=== PATIENT | male | born 1980 | race Caucasian/White ===

== ENCOUNTER 2020-01-01 22:11 | Emergency (ER) | payer OTHER ==
[2020-01-01 22:51] VITALS: BMI 35.5
[2020-01-01] MEDS ORDERED: SODIUM CHLORIDE 0.9% 500 ML INFUS.BAG IV ONE (22:56)
[2020-01-01] MEDS ORDERED: ACETAMINOPHEN 1000 MG/100 ML VIAL (NON FORMULARY) IVPB ONE (22:56)
--- NOTE | 2020-01-01 22:57 | PDOC ---
History of Present Illness - General Chief Complaint: Chest Pain Stated Complaint: CHEST AND ABDOMINAL PAIN Time Seen by Provider: 01/01/20 22:41 - History of Present Illness Initial Comments: Maximo Odom is a 39 y/o male with PMH significant for asthma presenting today with abdominal pain. Reports diffuse abdominal pain worse in the LLQ and associated with chest tightness. Pt had normal bowel movements today. Vomited x4 this evening NBNB. Reports possible minimal blood when wiping but none in the stool. Pain is constant and sharp. No fever/chills. No shortness of breath. SurgHx: none Past History - Medical History Allergies/Adverse Reactions: Allergies Allergy/AdvReac Type Severity Reaction Status Date / Time Fish Containing Products Allergy Severe Swelling Verified 01/01/20 23:24 seafood Allergy Severe Swelling Uncoded 04/19/16 10:33 Home Medications: Ambulatory Orders Alprazolam [Xanax] 2 mg PO TID 04/19/16 Escitalopram Oxalate [Lexapro -] 20 mg PO DAILY 04/19/16 Ondansetron [Zofran *Odt*] 4 mg SL PRN PRN #14 od.tablet 04/19/16 Famotidine [Pepcid] 20 mg PO BID PRN 14 Days #28 tablet 01/02/20 Ondansetron [Zofran *Odt*] 4 mg SL DAILY PRN #14 od.tablet 01/02/20 Anemia: No Asthma: Yes Cancer: No Cardiac Disorders: No CVA: No COPD: No CHF: No Dementia: No Diabetes: No GI Disorders: No Disorders: No HTN: No Hypercholesterolemia: No Kidney Stones: No Liver Disease: No Psychiatric Problems: Yes (anxiety) Seizures: No Thyroid Disease: No - Reproductive History Testicular Surgery: No - Immunization History Td Vaccination: Yes TDAP Vaccination: Yes Immunization Up to Date: Yes - Psycho-Social/Smoking History Smoking Status: No Smoking History: Never smoked Have you smoked in the past 12 months: No Number of Cigarettes Smoked Daily: 0 Cigars Per Day: 0 'Breaking Loose' booklet given: 04/25/14 - Substance Abuse Hx (Audit-C & DAST Scrn) How often the patient has a drink containing alcohol: Monthly or less Score: In Men: 4 or > Positive; In Women: 3 or > Positive: 1 Screen Result (Pos requires Nsg. Audit-10AR): Negative Review of Systems - Review of Systems Comments:: GENERAL/CONSTITUTIONAL: No fever or chills. No weakness._ HEAD, EYES, EARS, NOSE AND THROAT: No change in vision. No change in hearing. No sore throat._ CARDIOVASCULAR: No chest pain or shortness of breath_ RESPIRATORY: Denies cough, hemoptysis_ GASTROINTESTINAL: Reports abdominal pain. Reports nausea and vomiting. No diarrhea or constipation._ GENITOURINARY: No dysuria, frequency, or change in urination._ MUSCULOSKELETAL: No joint or muscle swelling or pain. No neck or back pain._ SKIN: No rash_ NEUROLOGIC: No headache, vertigo, loss of consciousness, or change in strength/sensation._ ENDOCRINE: No increased thirst. No abnormal weight change_ HEMATOLOGIC/LYMPHATIC: No anemia, easy bleeding, or history of blood clots._ ALLERGIC/IMMUNOLOGIC: No hives or skin allergy._ *Physical Exam - Vital Signs Last Vital Signs Temp Pulse Resp BP Pulse Ox 98.1 F 76 20 122/73 96 01/01/20 22:20 01/01/20 22:20 01/01/20 22:20 01/01/20 22:20 01/01/20 22:20 - Physical Exam GENERAL: Awake, alert, and oriented to person/place/time, in no acute distress_ HEAD: No signs of trauma, normocephalic, atraumatic _ EYES: PERRLA, EOMI, sclera anicteric, conjunctiva clear_ ENT: Hearing grossly normal, nares patent, oropharynx clear without exudates. No uvular deviation. Moist mucosa_ NECK: Normal ROM, supple, no lymphadenopathy, JVD, or masses_ LUNGS: No distress, speaks in full sentences, clear to auscultation bilaterally _ HEART: Regular rate and rhythm, normal S1 and S2, no murmurs appreciated, p eripheral pulses normal and equal bilaterally._ ABDOMEN: Soft, obese, mild TTP worse in the LLQ, normoactive bowel sounds. No guarding, no rebound. No masses_ EXTREMITIES: Normal inspection, Normal range of motion, no edema. No clubbing or cyanosis_ NEUROLOGICAL: Cranial nerves II through XII grossly intact. Normal speech, normal gait, no focal sensorimotor deficits _ SKIN: Warm, Dry, normal turgor, no rashes or lesions noted_ RECTAL: Normal inspection, no obvious bleeding, no masses, normal rectal tone, no hemorrhoids appreciated. ED Treatment Course - LABORATORY CBC & Chemistry Diagram: 01/01/20 23:25 01/01/20 23:25 - RADIOLOGY Radiology Studies Ordered: Category Date Time Status CHEST X-RAY PORTABLE* [RAD] Stat Radiology 01/01/20 22:55 Ordered Medical Decision Making - Medical Decision Making 39M hx of asthma presenting with diffuse abd pain worse in the LLQ and vomiting x4 this evening. First time abd pain. -cbc, cmp -ekg, trop, cxr -lipase -CT abd/pelv -FOBT -GI cocktail 01/02/20 00:50 POCUS GB shows no obvious signs of cholecystitis or cholelithiasis. Labs reviewed. Laboratory Last Values WBC 7.5 K/mm3 (4.0-10.0) 01/01/20 23:25 RBC 4.97 M/mm3 (4.00-5.60) 01/01/20 23: Hgb 14.3 GM/dL (11.7-16.9) 01/01/20 23:25 Hct 42.5 % (35.4-49) 01/01/20 23:25 MCV 85.5 fl (80-96) 01/01/20 23:25 MCH 28.8 pg (25.7-33.7) 01/01/20 23: MCHC 33.7 g/dl (32.0-35.9) 01/01/20 23:25 RDW 14.4 % (11.9-15.9) 01/01/20 23: Plt Count 190 K/MM3 (134-434) D 01/01/20 23:25 MPV 9.5 fl (7.5-11.1) 01/01/20 23:25 Absolute Neuts (auto) 5.1 K/mm3 (1.5-8.0) 01/01/20 23:25 Neutrophils % 67.8 % (42.8-82.8) D 01/01/20 23:25 Lymphocytes % 22.7 % (8-40) D 01/01/20 23: Monocytes % 7.0 % (3.8-10.2) 01/01/20 23: Eosinophils % 1.9 % (0-4.5) 01/01/20 23:25 Basophils % 0.6 % (0-2.0) 01/01/20 23:25 Nucleated RBC % 0 % (0-0) 01/01/20 23:25 Sodium 138 mmol/L (136-145) 01/01/20 23:25 Potassium 5.0 mmol/L (3.5-5.1) 01/01/20 23:25 Chloride 104 mmol/L (98-107) 01/01/20 23:25 Carbon Dioxide 29 mmol/L (21-32) 01/01/20 23:25 Anion Gap 4 MMOL/L (8-16) L 01/01/20 23:25 BUN 12.8 mg/dL (7-18) 01/01/20 23:25 Creatinine 1.1 mg/dL (0.55-1.3) 01/01/20 23:25 Est GFR (CKD-EPI)AfAm 96.13 01/01/20 23:25 Est GFR (CKD-EPI)NonAf 82.94 01/01/20 23:25 Random Glucose 99 mg/dL (74-106) 01/01/20 23:25 Calcium 9.6 mg/dL (8.5-10.1) 01/01/20 23:25 Total Bilirubin 0.3 mg/dL (0.2-1) 01/01/20 23:25 AST 34 U/L (15-37) 01/01/20 23:25 ALT 62 U/L (13-61) H 01/01/20 23:25 Alkaline Phosphatase 49 U/L (45-117) 01/01/20 23:25 Creatine Kinase 199 U/L (26-308) 01/01/20 23:25 Creatine Kinase Index 0.6 % (0.0-5.0) 01/01/20 23:25 CK-MB (CK-2) 1.2 ng/mL (0.5-3.6) 01/01/20 23:25 Troponin I < 0.02 ng/ml (0.00-0.05) 01/01/20 23:25 Total Protein 8.2 g/dl (6.4-8.2) 01/01/20 23:25 Albumin 4.4 g/dl (3.4-5.0) 01/01/20 23:25 Lipase 167 U/L (73-393) 01/01/20 23:25 01/02/20 01:14 CXR shows no acute chest pathology. EKG shows 71 bpm, NSR, incomplete RBBB (slightly more evident compared to p rior Mar 2016), LAFB, no ST elevation, QTc 408. 01/02/20 05:48 CT abd/pelv negative for acute intra-abdominal pathology. Pt reassessed. Reports moderate improvement with GI cocktail, but burning type sensation in the LUQ has returned. Plan to d/c home with PCP f/u and pepcid for gastritis. All questions answered. Return precautions given. Pt verbalized understanding and agreement with plan. Discharge - Discharge Information Problems reviewed: Yes Clinical Impression/Diagnosis: Abdominal pain, Nausea & vomiting Condition: Stable Disposition: HOME - Admission No - Additional Discharge Information Prescriptions: Famotidine [Pepcid] 20 mg PO BID PRN 14 Days #28 tablet PRN Reason: Indigestion Ondansetron [Zofran *Odt*] 4 mg SL DAILY PRN #14 od.tablet PRN Reason: Nausea And/Or Vomiting - Follow up/Referral Referrals: Ron Holguin MD [Primary Care Provider] - - Patient Discharge Instructions Patient Printed Discharge Instructions: Acute Abdominal Pain, DI for Gastritis Additional Instructions: Please keep yourself well hydrated and well nourished. Please take pepcid twice a day for 2 weeks for your abdominal pain. Please take zofran 4 mg as needed for your nausea. Please make a follow up appointment with your primary care doctor and with a unloading checker (Dr. Green). If you experience any new, worsening, or concerning symptoms, including severe abdominal pain, blood in the vomit, dizziness, chest pain, shortness of breath, or any other concerns, please return to the emergency room. - Post Discharge Activity Work/Back to School Note: Back to Work
[2020-01-01] MEDS ORDERED: MAG HYDROX/AL HYDROX/SIMETH -MYLANTA- ORAL SUSPENSION PO ONE (23:28)
[2020-01-01] MEDS ORDERED: LIDOCAINE VISCOUS 2% ORAL/TOP 20 ML UNIT-DOSE CUP MM ONE (23:28)
[2020-01-01] MEDS ORDERED: FAMOTIDINE 20 MG/50 ML IVPB 20 MG/50 ML MG IVPB ONE (23:28)
--- NOTE | 2020-01-01 23:28 | PDOC ---
Documentation entered by Hailee Bennett SCRIBE, acting as scribe for Cara Rios MD. Cara Rios MD: This documentation has been prepared by the Venecia villanueva Nirvannie, SCRIBE, under my direction and personally reviewed by me in its entirety. I confirm that the documentation accurately reflects all work, treatment, procedures, and medical decision making performed by me. Attending Attestation - Resident Resident Name: PressleyRandy - ED Attending Attestation I have performed the following: I have examined & evaluated the patient, The case was reviewed & discussed with the resident, I agree w/resident's findings & plan, Exceptions are as noted - HPI HPI: 01/01/20 23:47 The patient is a 39 year old male with a significant past medical history of asthma and anxiety who presents to the ED with LLQ abdominal with radiation up the abdomen with associated chest tightness. As per patient, he had a normal BM today. He denies any history of abdominal surgeries. He denies any fevers, chill s, no sob. did have vomiting x 4. thouht maybe had had blood in his stool, but was unclear if he had eating anything red. no sick contacts. no mod factors. pain constant, radiation upward. no mod factors. did not take anything for pain. Allergies: Fish containing products, seafood Primary Care Physician: Dr. Holguin - Physicial Exam PE: 01/02/20 00:09 awake alert lungs clear bilat heart rrr no mrg abd soft llq ttp. and diffusely tender. no rebound no guarding. no cva tenderness. skin warm and dry. alert oriented x 3. ext wwp. no edema. symmetric pulses. - Medical Decision Making 01/02/20 00:10 39 yo male h/o asthma with lower abd pain radiating upward into chest, associated vomiting x 4. differential diverticulitis, colitis, cholecystitis, pancreatitis. malloryweis or boorehaves as has chest tightness. plan labs ekg ua ct a/p . cxr Heart Score/ECG Review #1 ECG reviewed & interpreted by me at: 23:28 General ECG Interpretation: Sinus Rhythm, Normal Rate, Normal Intervals, No acute ischemic changes Discharge - Discharge Information Problems reviewed: Yes Clinical Impression/Diagnosis: Abdominal pain, Nausea & vomiting Condition: Stable Disposition: HOME - Additional Discharge Information Prescriptions: Famotidine [Pepcid] 20 mg PO BID PRN 14 Days #28 tablet PRN Reason: Indigestion Ondansetron [Zofran *Odt*] 4 mg SL DAILY PRN #14 od.tablet PRN Reason: Nausea And/Or Vomiting - Follow up/Referral Referrals: Ron Holguin MD [Primary Care Provider] - - Patient Discharge Instructions Patient Printed Discharge Instructions: Acute Abdominal Pain, DI for Gastritis Additional Instructions: Please keep yourself well hydrated and well nourished. Please take pepcid twice a day for 2 weeks for your abdominal pain. Please take zofran 4 mg as needed for your nausea. Please make a follow up appointment with your primary care doctor and with a assistant golf coach (Dr. Green). If you experience any new, worsening, or concerning symptoms, including severe abdominal pain, blood in the vomit, dizziness, chest pain, shortness of breath, or any other concerns, please return to the emergency room. - Post Discharge Activity Work/Back to School Note: Back to Work
[2020-01-01 23:40] LABS: BASO % 0.6 % (0-2.0); EOS % 1.9 % (0-4.5); HEMATOCRIT 42.5 % (35.4-49); HEMOGLOBIN 14.3 GM/dL (11.7-16.9); LYMPH % 22.7 % (8-40); MCH 28.8 pg (25.7-33.7); MCHC 33.7 g/dl (32.0-35.9); MEAN CELL VOLUME 85.5 fl (80-96); MEAN PLT VOLUME 9.5 fl (7.5-11.1); NEUT % 67.8 % (42.8-82.8); PLATELET COUNT 190 K/MM3 (134-434); RBC 4.97 M/mm3 (4.00-5.60); RDW 14.4 % (11.9-15.9); WHITE BLOOD COUNT 7.5 K/mm3 (4.0-10.0)
[2020-01-02 00:22] LABS: ALBUMIN 4.4 g/dl (3.4-5.0); ALK PHOS 49 U/L (45-117); ANION GAP 4 MMOL/L (8-16); BILIRUBIN,TOTAL 0.3 mg/dL (0.2-1); BLOOD UREA NITROGEN 12.8 mg/dL (7-18); CALCIUM 9.6 mg/dL (8.5-10.1); CHLORIDE 104 mmol/L (98-107); CO2 29 mmol/L (21-32); CREATININE 1.1 mg/dL (0.55-1.3); GLUCOSE,RANDOM 99 mg/dL (74-106); LIPASE 167 U/L (73-393); SGOT/AST 34 U/L (15-37); SGPT/ALT 62 U/L (13-61); SODIUM 138 mmol/L (136-145); TOT PROT 8.2 g/dl (6.4-8.2)
[2020-01-02] MEDS ORDERED: LIDOCAINE VISCOUS 2% ORAL/TOP 20 ML UNIT-DOSE CUP ONE (00:32)
[2020-01-02] MEDS ORDERED: FAMOTIDINE 20 MG/50 ML IVPB 20 MG/50 ML MG IVPB ONE (00:33)
[2020-01-02] MEDS ORDERED: MAG HYDROX/AL HYDROX/SIMETH 30 ML UNIT-DOSE CUP ONE (00:33)
[2020-01-02] MEDS ORDERED: ACETAMINOPHEN INJECTION 100 ML IVPB ONE (00:33)
[2020-01-02 00:55] LABS: URINE APPEARANCE CLEAR; URINE BILIRUBIN NEGATIVE (NEGATIVE); URINE COLOR YELLOW; URINE GLUCOSE (UA) NEGATIVE (NEGATIVE); URINE KETONE TRACE (NEGATIVE); URINE LEUK ESTERASE NEGATIVE (NEGATIVE); URINE NITRITE NEGATIVE (NEGATIVE); URINE PROTEIN NEGATIVE (NEGATIVE); URINE UROBILINOGEN 0.2 mg/dL (0.2-1.0)
--- NOTE | 2020-01-02 06:02 | PDOC ---
*Physical Exam - Vital Signs Last Vital Signs Temp Pulse Resp BP Pulse Ox 98.1 F 76 20 122/73 96 01/01/20 22:20 01/01/20 22:20 01/01/20 22:20 01/01/20 22:20 01/01/20 22:20 ED Treatment Course - LABORATORY CBC & Chemistry Diagram: 01/01/20 23:25 01/01/20 23:25 - ADDITIONAL ORDERS Additional order review: Laboratory Results 01/02/20 01/01/20 00:46 23:25 Sodium 138 Potassium 5.0 Chloride 104 Carbon Dioxide 29 Anion Gap 4 L BUN 12.8 Creatinine 1.1 Est GFR (CKD-EPI)AfAm 96.13 Est GFR (CKD-EPI)NonAf 82.94 Random Glucose 99 Calcium 9.6 Total Bilirubin 0.3 AST 34 ALT 62 H Alkaline Phosphatase 49 Creatine Kinase 199 Creatine Kinase Index 0.6 CK-MB (CK-2) 1.2 Troponin I < 0.02 Total Protein 8.2 Albumin 4.4 Lipase 167 Urine Color Yellow Urine Appearance Clear Urine pH 5.0 Ur Specific [place] 1.018 Urine Protein Negative Urine Glucose (UA) Negative Urine Ketones Trace H Urine Blood Negative Urine Nitrite Negative Urine Bilirubin Negative Urine Urobilinogen 0.2 Ur Leukocyte Esterase Negative 01/01/20 23:25 RBC 4.97 MCV 85.5 MCHC 33.7 RDW 14.4 MPV 9.5 Neutrophils % 67.8 D Lymphocytes % 22.7 D Monocytes % 7.0 Eosinophils % 1.9 Basophils % 0.6 - Medications Given in the ED: ED Medications Discontinued Medications Generic Name Dose Route Start Last Admin Trade Name Jazzy PRN Reason Stop Dose Admin Acetaminophen 1,000 mg 01/01/20 22:56 01/02/20 00:50 Ofirmev Injection - IVPB 01/01/20 22:57 1,000 mg ONCE ONE Administration Al Hydroxide/Mg Hydroxide 30 ml 01/01/20 23:28 01/02/20 00:52 Mylanta Suspension - PO 01/01/20 23:29 30 ml ONCE ONE Administration Famotidine/Sodium Chloride 20 mg in 50 mls @ 100 mls/hr 01/01/20 23:28 01/02/20 00:53 Pepcid 20 Mg Premixed Ivpb - IVPB 01/01/20 23:57 100 mls/hr ONCE ONE Administration Lidocaine HCl 20 ml 01/01/20 23:28 01/02/20 00:53 Xylocaine 2% Viscous Oral - MM 01/01/20 23:29 20 ml ONCE ONE Administration Sodium Chloride 1,000 ml 01/01/20 22:56 01/02/20 00:49 Normal Saline - IV 01/01/20 22:57 1,000 ml ONCE ONE Administration Medical Decision Making - Medical Decision Making 01/02/20 06:02 Patient Name: JR VELÁZQUEZ THIS IS A PRELIMINARY REPORT FROM [facility] DATE OF SERVICE: 2020-01-02 04:50:20 IMAGES: [id number] EXAM: ABDOMEN \T\ PELVIS CT WITH CONTR HISTORY: Abdominal pain COMPARISON: None. FINDINGS: Lung bases are clear. The visualized cardiac chambers are normal size and configuration. Normal liver, gallbladder, pancreas, spleen, adrenal glands and kidneys. The stomach and abdominal small and large bowel are normal. There is no aortic aneurysm. There is no significant retroperitoneal lymphadenopathy. The pelvic small and large bowel are normal. The appendix is normal. The urinary bladder and prostate gland are normal. No pelvic free fluid is identified. There is no significant pelvic lymphadenopathy. IMPRESSION: No localizing signs for acute pathology. 01/02/20 23:49 Pt stable for D/C home Discharge - Discharge Information Problems reviewed: Yes Clinical Impression/Diagnosis: Abdominal pain, Nausea & vomiting Condition: Stable Disposition: HOME - Additional Discharge Information Prescriptions: Famotidine [Pepcid] 20 mg PO BID PRN 14 Days #28 tablet PRN Reason: Indigestion Ondansetron [Zofran *Odt*] 4 mg SL DAILY PRN #14 od.tablet PRN Reason: Nausea And/Or Vomiting - Follow up/Referral Referrals: Ron Holguin MD [Primary Care Provider] - - Patient Discharge Instructions Patient Printed Discharge Instructions: Acute Abdominal Pain, DI for Gastritis Additional Instructions: Please keep yourself well hydrated and well nourished. Please take pepcid twice a day for 2 weeks for your abdominal pain. Please take zofran 4 mg as needed for your nausea. Please make a follow up appointment with your primary care doctor and with a diamond sizer and sorter (Dr. Green). If you experience any new, worsening, or concerning symptoms, including severe abdominal pain, blood in the vomit, dizziness, chest pain, shortness of breath, or any other concerns, please return to the emergency room. - Post Discharge Activity Work/Back to School Note: Back to Work
[2020-01-02 06:14] VITALS: BP 113/72; PULSE 74; TEMP 98
--- NOTE | 2020-01-02 14:03 | EKG ---
Test Reason : Blood Pressure : / mmHG Vent. Rate : 071 BPM Atrial Rate : 071 BPM P-R Int : 156 ms QRS Dur : 100 ms QT Int : 376 ms P-R-T Axes : 038 -52 017 degrees QTc Int : 408 ms NORMAL SINUS RHYTHM LOW VOLTAGE QRS INCOMPLETE RIGHT BUNDLE BRANCH BLOCK LEFT ANTERIOR FASCICULAR BLOCK ABNORMAL ECG WHEN COMPARED WITH ECG OF 19-APR-2016 11:03, INCOMPLETE RIGHT BUNDLE BRANCH BLOCK MORE EVIDENT Confirmed by LUÍS GONZALEZ, KIRK ([id number]) on 01/02/2020 2:03:09 PM Referred By: Confirmed By:KIRK STALEY MD
== END 2020-01-02 06:38 | disposition home or self-care (01) ==
LOC: JER 22:11
PROC: 3E033GC Introduction of Other Therapeutic Substance into Peripheral Vein, Percutaneous Approach (ICD-10-PCS; principal; 2020-01-01)
DX: R10.32 Left lower quadrant pain (principal); R11.2 Nausea with vomiting, unspecified
CPT/HCPCS: 36415; 71045-TC-FY; 74177-TC; 76705-TC; 80053; 81003; 82272; 82550; 82553; 83690; 84484; 85025; 93005; 93010; 99285-25; J0131; Q9967

== ENCOUNTER 2021-06-15 15:25 | Emergency (ER) | payer OTHER ==
[2021-06-15 15:43] VITALS: BP 109/68; PULSE 90; TEMP 98.8; BMI 32.1
[2021-06-15] MEDS ORDERED: IBUPROFEN 600 MG TABLET (FP) PO ONE ×2 (17:49→18:12)
== END 2021-06-15 18:32 | disposition home or self-care (01) ==
LOC: JER 15:25
DX: U07.1 COVID-19 (principal)
CPT/HCPCS: 87804; 99283-25; C9803; U0003; U0005